=== PATIENT | female | born 1935 | race Caucasian/White ===

== ENCOUNTER 2018-06-30 08:58 | Emergency (ER) | payer MEDICARE, BC ==
[2018-06-30 09:16] VITALS: TEMP 96.8
[2018-06-30 10:17] VITALS: BP 125/80; PULSE 77; RESP 16; O2SAT 95
== END 2018-06-30 10:19 | disposition home or self-care (01) | DRG 603 ==
LOC: ED 08:58
DX: L03.114 Cellulitis of left upper limb (principal)
CPT/HCPCS: 99282; 99283